=== PATIENT | male | born 1975 | race Hispanic/Latino ===

== ENCOUNTER 2022-03-11 00:51 | Inpatient (IN) | payer SELFPAY ==
[2022-03-11] MEDS ORDERED: Albuterol Sulfate 2.5 mg/3 ml Neb ONE (01:04)
[2022-03-11 01:15] LABS: #Basophils 0.1 10x3/uL (0.0-0.2); #Eosinphils 1.1 10x3/uL (0.0-0.5); #Monocytes 1.1 10x3/uL (0.0-1.1); #Neutrophils 5.5 10x3/uL (1.5-8.4); %Basophils 0.8 % (0.0-2.0); %Eosinophils 9.5 % (0.0-6.0); %Lymphocytes 30.4 % (18.0-47.0); %Monocytes 9.4 % (0.0-10.0); %Neutrophils 49.6 % (40.0-75.0); Hemoglobin 15.6 g/dL (13.5-17.5); Mean Corpuscular HGB CONC 35.5 g/dL (32.0-36.0); Mean Corpuscular Hemoglobin 30.2 pg (27.0-33.0); Mean Corpuscular Volume 85.1 fl (81.2-95.1); Mean Platelet Volume 10.8 fl (7.4-10.4); Platelet Count 247 10x3/uL (150-450); RBC Distribution Width 13.1 % (11.5-14.5); Red Blood Cell (RBC) Count 5.17 10x6/uL (4.32-5.72); White Blood Cell (WBC) Count 11.2 10x3/uL (3.5-10.5)
[2022-03-11] MEDS ORDERED: methylPREDNISolone Sod Succ/PF 125 MG/2 ML VIAL ONE (01:15)
[2022-03-11] MEDS ORDERED: Magnesium 2 GM/50 ML BAG (IN WATER) ONE (01:15)
[2022-03-11 01:30] LABS: Anion Gap 13 mmol/L (10-20); BUN (Urea Nitrogen) 12 mg/dL (8.9-20.6); Calc. Creatinine Clearance 0 mL/min (70-130); Calcium 9.3 mg/dL (7.8-10.44); Carbon Dioxide 25 mmol/L (22-29); Chloride 105 mmol/L (98-107); Glucose 107 mg/dL (70-105); Sodium 139 mmol/L (136-145)
[2022-03-11 02:08] LABS: SARS-CoV-2 NAA Rapid Test Not Detected (NotDetected)
[2022-03-11] MEDS ORDERED: Oxymetazoline HCl 0.05% ( 15 ML ) ONE (02:13)
[2022-03-11] MEDS ORDERED: Senokot S 8.6-50 MG TAB PO PRN (03:20)
[2022-03-11] MEDS ORDERED: Ondansetron PF 4 MG/2 ML Vial IVP PRN (03:20)
[2022-03-11] MEDS ORDERED: Calcium Carbonate 500 MG ChewTAB PO PRN (03:20)
[2022-03-11 04:00] VITALS: BMI 30.7
[2022-03-11] MEDS: HYDROcodone/Acetaminophen 5/325 mg Tablet PO PRN ×3 (04:18→18:32)
[2022-03-11] MEDS: Guaifenesin DM 100-10/5 ML UDCUP PO PRN ×3 (04:19→21:52)
[2022-03-11] MEDS: methylPREDNISolone Sod Succ/PF 125 MG/2 ML VIAL IVP SCH ×3 (06:12→21:55)
[2022-03-11] MEDS: Mometasone/Formoterol 200/5 60 PUFF INH SCH ×2 (07:38→21:17)
[2022-03-11] MEDS: Famotidine 20 MG TAB PO SCH ×2 (08:44→21:46)
[2022-03-11] MEDS: Fluticasone Propionate Nasal Spray 16 gm Bottle NASAL SCH (08:46)
[2022-03-11] MEDS: Loratadine 10 MG TAB PO SCH (08:46)
[2022-03-11] MEDS: Enoxaparin Sodium 40 MG/0.4 ML SYRINGE SC SCH (08:46)
[2022-03-11] MEDS: Amoxicillin/Potassium Clav 875 MG TAB PO SCH ×2 (08:46→21:47)
[2022-03-11] MEDS: Lorazepam 0.5 MG TAB PO PRN ×2 (13:27→21:46)
[2022-03-11] MEDS ORDERED: Sodium Chloride 0.65% Nasal 44 ML BOT EA NARE PRN (16:34)
[2022-03-11] MEDS ORDERED: Montelukast Sodium 10 mg Tablet PO SCH (21:00)
[2022-03-11] MEDS: Acetaminophen 325 MG TAB PO PRN (21:53)
[2022-03-12] MEDS: Acetaminophen 325 MG TAB PO PRN (03:20)
[2022-03-12] MEDS: methylPREDNISolone Sod Succ/PF 125 MG/2 ML VIAL IVP SCH ×2 (06:53→14:28)
[2022-03-12] MEDS: Mometasone/Formoterol 200/5 60 PUFF INH SCH (07:04)
[2022-03-12] MEDS: Amoxicillin/Potassium Clav 875 MG TAB PO SCH (07:50)
[2022-03-12] MEDS: Enoxaparin Sodium 40 MG/0.4 ML SYRINGE SC SCH (07:50)
[2022-03-12] MEDS: Famotidine 20 MG TAB PO SCH (07:51)
[2022-03-12] MEDS: Fluticasone Propionate Nasal Spray 16 gm Bottle NASAL SCH (07:51)
[2022-03-12] MEDS: HYDROcodone/Acetaminophen 5/325 mg Tablet PO PRN (07:51)
[2022-03-12] MEDS: Loratadine 10 MG TAB PO SCH (07:51)
[2022-03-12] MEDS: Lorazepam 0.5 MG TAB PO PRN (07:58)
[2022-03-12 08:21] VITALS: TEMP 98.1
[2022-03-12 15:56] VITALS: BP 114/62
== END 2022-03-12 17:14 | disposition home or self-care (01) | DRG 189 ==
LOC: CSHERS 00:51 → CSHTELE 03:51
PROVIDERS: ADMIT Student in an Organized Health Care Education/Training Program; ATTEND Internal Medicine
DX: J96.01 Acute respiratory failure with hypoxia (principal); R65.10 Systemic inflammatory response syndrome (SIRS) of non-infectious origin without acute organ dysfunction; J45.901 Unspecified asthma with (acute) exacerbation; F17.290 Nicotine dependence, other tobacco product, uncomplicated; Z20.822 Contact with and (suspected) exposure to COVID-19; J40 Bronchitis, not specified as acute or chronic; F41.9 Anxiety disorder, unspecified; Z98.890 Other specified postprocedural states
CPT/HCPCS: 71045; 80048; 83880; 84484; 85025; 93005; 94640; 94644; 94760; 96365; 96375; J1650; J2930; J3475; J7611; J7620

== ENCOUNTER 2022-03-31 05:23 | Emergency (ER) | payer SELFPAY ==
[2022-03-31] MEDS ORDERED: Ondansetron PF 4 MG/2 ML Vial ONE (06:18)
[2022-03-31] MEDS ORDERED: Ketorolac Tromethamine 30 MG/ML VIAL ONE (06:18)
[2022-03-31 06:29] LABS: #Eosinphils 0.4 10x3/uL (0.0-0.5); #Monocytes 1.1 10x3/uL (0.0-1.1); #Neutrophils 7.8 10x3/uL (1.5-8.4); %Basophils 0.3 % (0.0-2.0); %Eosinophils 3.5 % (0.0-6.0); %Lymphocytes 11.9 % (18.0-47.0); %Monocytes 10.3 % (0.0-10.0); %Neutrophils 73.2 % (40.0-75.0); Hemoglobin 16.3 g/dL (13.5-17.5); Mean Corpuscular HGB CONC 34.6 g/dL (32.0-36.0); Mean Corpuscular Hemoglobin 29.8 pg (27.0-33.0); Mean Corpuscular Volume 86.1 fl (81.2-95.1); Mean Platelet Volume 10.7 fl (7.4-10.4); Platelet Count 223 10x3/uL (150-450); RBC Distribution Width 13.1 % (11.5-14.5); Red Blood Cell (RBC) Count 5.47 10x6/uL (4.32-5.72); White Blood Cell (WBC) Count 10.6 10x3/uL (3.5-10.5)
[2022-03-31 06:44] LABS: ALT (SGPT) 15 U/L (8-55); AST (SGOT) 11 U/L (5-34); Albumin 3.8 g/dL (3.5-5.0); Alkaline Phosphatase 55 U/L (40-110); Anion Gap 15 mmol/L (10-20); BUN (Urea Nitrogen) 17 mg/dL (8.9-20.6); Bilirubin, Total 0.9 mg/dL (0.2-1.2); Calc. Creatinine Clearance 0 mL/min (70-130); Calcium 8.6 mg/dL (7.8-10.44); Carbon Dioxide 24 mmol/L (22-29); Chloride 103 mmol/L (98-107); Globulin 2.8 g/dL (2.4-3.5); Glucose 96 mg/dL (70-105); Lipase 17 U/L (8-78); Potassium 4.3 mmol/L (3.5-5.1); Protein, Total 6.6 g/dL (6.0-8.3); Sodium 138 mmol/L (136-145)
[2022-03-31 07:04] LABS: Bilirubin Neg (Negative); Blood, Urine Negative (Negative); Clarity Clear (Clear); Glucose, Urine (Dipstick) Normal (Negative); Ketone, Urine Negative (Negative); Leukocyte Negative (Negative); Nitrite Negative (Negative); Protein, Urine (Dipstick) Negative (Neg-Trace)
[2022-03-31 07:16] LABS: SARS-CoV-2 NAA Rapid Test Not Detected (NotDetected)
[2022-03-31] MEDS ORDERED: Milk Of Magnesia 30 ML UDCUP ONE (10:25)
[2022-03-31] MEDS ORDERED: Lidocaine Viscous Sol 2% 15 ml UD Cup ONE (10:26)
[2022-03-31] MEDS ORDERED: Iopamidol 300 61% 100 ML VIAL FS ONE (10:36)
== END 2022-03-31 10:28 | disposition home or self-care (01) ==
LOC: CSHERS 05:23
DX: K21.9 Gastro-esophageal reflux disease without esophagitis (principal); R10.13 Epigastric pain; Z20.822 Contact with and (suspected) exposure to COVID-19; J45.909 Unspecified asthma, uncomplicated; Z87.891 Personal history of nicotine dependence; Z79.51 Long term (current) use of inhaled steroids
CPT/HCPCS: 74177; 80053; 81003; 83690; 85025; 96361; 96374; 96375; J1885; J2405; Q9967